=== PATIENT | male | born 1945 | race American Indian/Alaskan Native ===

== ENCOUNTER → 2018-11-04 | Day surgery (SDC) | payer OTHER ==
--- NOTE | 2018-11-06 15:42 | PATH ---
Cytology Non-Gynecological Report Patient Name: JUSTIN BARRAZA [facility]. Rec. #: [id number] /Age/Gender: 1945 (Age: 73) / M Account: [id number] Location: RADIOLOGY INTER Taken: 11/04/2018 Received: 11/04/2018 Reported: 11/06/2018 Physicians: Herrera Ybarra M.D. Specimen(s) Received LEFT LOBE THYROID FNA Clinical History Left thyroid nodule Final Diagnosis THYROID, LEFT, FINE NEEDLE ASPIRATION: SATISFACTORY FOR EVALUATION BETHESDA CLASS II: BENIGN SMALL FOLLICULAR CELLS, MACROPHAGES, AND COLLOID PRESENT, CONSISTENT WITH A BENIGN FOLLICULAR NODULE. Electronically Signed Dasha Moody M.D. Gross Description Received are eight direct smears, four of which are air-dried and Diff-Quik stained, and four of which are alcohol fixed and Pap stained. Also received is 30 ml of bloody formalin from which one cellblock is prepared.
== END | disposition home or self-care (01) ==
LOC: JRADIR 09:38
PROVIDERS: ATTEND Otolaryngology
PROC: 0G9G3ZX Drainage of Left Thyroid Gland Lobe, Percutaneous Approach, Diagnostic (ICD-10-PCS; principal; 2018-11-04)
PROC: BG44ZZZ Ultrasonography of Thyroid Gland (ICD-10-PCS; 2018-11-04)
DX: E04.1 Nontoxic single thyroid nodule (principal)
CPT/HCPCS: 76942; 88173; 88305-TC

== ENCOUNTER → 2018-11-12 | Day surgery (SDC) | payer OTHER ==
--- NOTE | 2018-11-13 17:43 | PATH ---
Cytology Non-Gynecological Report Patient Name: MARIA ESTHER BARRAZA [facility]. Rec. #: [id number] /Age/Gender: 1945 (Age: 73) / M Account: [id number] Location: RADIOLOGY INTER Taken: 11/12/2018 Received: 11/12/2018 Reported: 11/13/2018 Physicians: Homer Pineda M.D. Specimen(s) Received RIGHT THYROID FNA Clinical History Right thyroid nodule, 3.61 x 2.11 x 3.70 cm Final Diagnosis THYROID, RIGHT, FINE NEEDLE ASPIRATION: SATISFACTORY FOR EVALUATION. BETHESDA CLASS II: BENIGN. CYTOLOGIC FINDINGS ARE CONSISTENT WITH A BENIGN FOLLICULAR NODULE WITH POST-HEMORRHAGIC CHANGE. FOLLICULAR CELLS WITH FOCAL REACTIVE CHANGES IN A BACKGROUND OF THIN COLLOID AND MANY HEMOSIDERIN-LADEN MACROPHAGES. Electronically Signed Alize Dunham M.D. Gross Description Received are eight direct smears, four of which are air-dried and Diff-Quik stained, and four of which are alcohol fixed and Pap stained. Also received is 20 ml of bloody formalin from which one cellblock is prepared.
== END | disposition home or self-care (01) ==
LOC: JRADIR 09:28
PROVIDERS: ATTEND Otolaryngology
PROC: 0G9K3ZX Drainage of Thyroid Gland, Percutaneous Approach, Diagnostic (ICD-10-PCS; principal; 2018-11-12)
DX: E04.1 Nontoxic single thyroid nodule (principal)
CPT/HCPCS: 76942; 88173; 88305-TC